=== PATIENT | female | born 1985 | race African-American/Black ===

== ENCOUNTER 2018-10-04 16:50 | Emergency (ER) | payer BC, MEDICAID ==
[~2018-10-04] VITALS: Ht 170.2 cm; Wt 66.4 kg
[2018-10-04 16:54] VITALS: BP 129/83
[2018-10-04] MEDS ORDERED: LIDOCAINE-MPF 1%, 5ML ONE (17:13)
[2018-10-04] MEDS ORDERED: DIPH,PERTUSS(ACELL),TET VAC/PF 0.5 ML IM-VACC ONE ×2 (17:13→17:30)
[2018-10-04] MEDS ORDERED: LIDOCAINE 1%, 10ML INFIL ONE (17:30)
== END 2018-10-04 18:06 | disposition home or self-care (01) ==
LOC: ED 18:00
DX: S61.211A Laceration without foreign body of left index finger without damage to nail, initial encounter (principal); Z88.6 Allergy status to analgesic agent; W26.9XXA Contact with unspecified sharp object(s), initial encounter; Y93.89 Activity, other specified; Y92.009 Unspecified place in unspecified non-institutional (private) residence as the place of occurrence of the external cause; Y99.8 Other external cause status
CPT/HCPCS: 12041; 90471; 90715